=== PATIENT | female | born 1960 | race Caucasian/White ===

== ENCOUNTER 2019-02-14 12:48 | Day surgery (SDC) | payer OTHER ==
[2019-02-05 14:07] VITALS: BMI 35.9
[2019-02-14 13:53] VITALS: TEMP 98.4
[2019-02-14] MEDS ORDERED: LIDOCAINE HCL 2% (50ML VIAL) INF ONE (14:01)
[2019-02-14] MEDS ORDERED: LIDOCAINE HCL 2% (20ML MULTI-DOSE VIAL) NR ONE (14:43)
[2019-02-14] MEDS ORDERED: ACETAMINOPHEN 500 MG TABLET (FP) PO PRN (14:48)
[2019-02-14] MEDS ORDERED: ONDANSETRON 4 MG/2 ML VIAL IVPUSH PRN (14:48)
[2019-02-14] MEDS ORDERED: PROMETHAZINE HCL 25 MG/1 ML VIAL IVPUSH PRN (14:48)
[2019-02-14] MEDS ORDERED: MIDAZOLAM HCL 2 MG/2 ML SINGLE DOSE VIAL ONE (14:54)
[2019-02-14] MEDS ORDERED: PROPOFOL 20 ML ONE ×2 (14:54→15:40)
[2019-02-14] MEDS ORDERED: LACTATED RINGERS SOLUTION 1,000 ML IV SCH (15:00)
[2019-02-14] MEDS ORDERED: LIDOCAINE HCL/PF 2% SDV 5ML VIAL ONE (15:47)
[2019-02-14] MEDS ORDERED: LIDOCAINE HCL 2% 100 MG/5 ML DISP.SYRIN ONE (16:41)
[2019-02-14 17:19] VITALS: BP 115/78; PULSE 76
--- NOTE | 2019-02-20 09:01 | OP ---
DATE OF OPERATION: 02/14/2019 PREOPERATIVE DIAGNOSIS: Right carpal tunnel syndrome. POSTOPERATIVE DIAGNOSIS: Right carpal tunnel syndrome. OPERATIVE PROCEDURE: Right carpal tunnel release. ANESTHESIA: Local with sedation. COMPLICATIONS: None. ESTIMATED BLOOD LOSS: Minimal. INDICATION FOR PROCEDURE: The patient is a 58-year-old female with the above finding, indicated for operative treatment. Risks, benefits, and alternatives were discussed with patient at length. Proper informed consent was obtained. PROCEDURE: After proper identification of patient and correct operative site, patient was brought to the operating room and placed supine on the operating table. All prominences were well padded. Sedation was given by the anesthesiologist. Local anesthesia was given with 2% lidocaine. Right upper extremity was prepped and draped in the usual sterile fashion. Well-padded tourniquet was placed as was a sterile prep. Esmarch bandage was used to exsanguinate the Right upper extremity. The tourniquet was inflated to 250 mmHg. A longitudinal incision was made in the proximal aspect of the palm. Incision was taken sharply through the skin with blunt and sharp dissection through the subcutaneous tissues. Palmar fascia was divided longitudinally. Transcarpal ligament was divided longitudinally. The distal 4 cm of the antebrachial fascia were divided longitudinally under direct visualization with loupe magnification. This provided complete release of the median nerve at the wrist. Wound was irrigated and repaired with 5-0 fast-absorbing, plain-gut suture. Sterile dressings were applied. Patient was brought to recovery in stable condition. She tolerated the procedure well. Carl [id number]
== END 2019-02-14 17:15 | disposition home or self-care (01) ==
LOC: FASU 12:48
PROVIDERS: ATTEND Orthopaedic Surgery Hand Surgery
PROC: 01N50ZZ Release Median Nerve, Open Approach (ICD-10-PCS; principal; 2019-02-14 16:01)
DX: G56.01 Carpal tunnel syndrome, right upper limb (principal)